=== PATIENT | female | born 1980 | race American Indian/Alaskan Native ===

== ENCOUNTER 2020-03-22 00:18 | Emergency (ER) | payer SELFPAY | END 2020-03-22 07:00 | disposition left against medical advice (07) | LOC: ED 00:18 | DX: H92.02 Otalgia, left ear (principal); Z53.21 Procedure and treatment not carried out due to patient leaving prior to being seen by health care provider ==

== ENCOUNTER 2020-09-10 01:03 | Emergency (ER) | payer SELFPAY ==
[2020-09-10 01:32] VITALS: BP 151/99
[2020-09-10 02:06] LABS: Basophils # (Auto) 0.1 K/mm3 (0.0-0.1); Basophils % (Auto) 0.3 % (0.0-1.8); Eosinophils # (Auto) 0.1 K/mm3 (0.0-0.4); Eosinophils % (Auto) 0.4 % (0.0-4.3); Hematocrit 33.7 % (30.3-42.9); Hemoglobin 11.5 gm/dl (10.1-14.3); Lymphocytes # (Auto) 3.3 K/mm3 (1.2-5.4); Lymphocytes % (Auto) 19.5 % (13.4-35.0); Mean Corpuscular HGB Conc 34 % (30-34); Mean Corpuscular Volume 89 fl (79-97); Monocytes # (Auto) 1.4 K/mm3 (0.0-0.8); Monocytes % (Auto) 8.4 % (0.0-7.3); Platelet Count 380 K/mm3 (140-440); Red Blood Count 3.78 M/mm3 (3.65-5.03)
[2020-09-10 02:12] LABS: Bacteria,Urine 1+ /HPF (Negative); Bilirubin,Urine NEG (Negative); Blood,Urine MOD (Negative); Color,Urine Straw (Yellow); Mucus,Urine FEW /HPF; Protein,Urine <15 mg/dL mg/dL (Negative); Urobilinogen,Urine < 2.0 mg/dL (<2.0)
[2020-09-10] MEDS ORDERED: ACETAMINOPHEN 325 MG TAB PO ONE (02:24)
--- NOTE | 2020-09-10 02:27 | Emergency Department Report ---
ED Female HPI - General Chief complaint: Vaginal Bleeding Stated complaint: HEAVY VAGINAL BLEEDING/BURNING SENSATION Time Seen by Provider: 09/10/20 01:54 Source: patient Mode of arrival: Ambulatory Limitations: No Limitations - History of Present Illness Initial comments: Patient is a 39-year-old female presents emergency with complaints of lower ab dominal cramping that began a week ago. She states that on September 01 she had an episode of vaginal bleeding and then it resolved. She states again she had vaginal bleeding on September 05 but it self resolved again. She states today she has noticed a small amount of vaginal bleeding has changed approximately 2 menstrual pads. She states that she has not had a menstrual cycle since July 10, 2020. She has not taken a test. She states that she last saw an [facility] 7 months ago. She denies ever having abnormal Pap smear. She denies any fever, nausea, vomiting, diarrhea, dysuria, abnormal vaginal discharge, itching or burning. No past medical history. No allergies medications. - Related Data Home Medications Medication Instructions Recorded Confirmed Last Taken Vit-Fe Fumar-FA [ 1 tab PO QDAY 04/08/15 04/08/15 Unknown Vitamin] Previous Rx's Medication Instructions Recorded Last Taken Type Acetaminophen with Codeine 1 each PO Q6HR PRN #15 tablet 04/09/15 Unknown Rx [Acetaminophen-Codeine #2 TAB] Docusate Sodium [Colace CAP] 100 mg PO BID PRN #60 capsule 04/09/15 Unknown Rx Allergies Allergy/AdvReac Type Severity Reaction Status Date / Time No Known Allergies Allergy Unverified 04/08/15 17:45 ED Review of Systems ROS: Stated complaint: HEAVY VAGINAL BLEEDING/BURNING SENSATION Other details as noted in HPI Comment: All other systems reviewed and negative ED Past Medical Hx - Past Medical History Previous Medical History?: No - Surgical History Past Surgical History?: Yes Additional Surgical History: RIGHT OVARIAN CYST REMOVED - Social History Smoking Status: Current Every Day Smoker Substance Use Type: None - Medications Home Medications: Home Medications Medication Instructions Recorded Confirmed Last Taken Type Vit-Fe Fumar-FA [ 1 tab PO QDAY 04/08/15 04/08/15 Unknown History Vitamin] Acetaminophen with Codeine 1 each PO Q6HR PRN #15 tablet 04/09/15 Unknown Rx [Acetaminophen-Codeine #2 TAB] Docusate Sodium [Colace CAP] 100 mg PO BID PRN #60 capsule 04/09/15 Unknown Rx ED Physical Exam - General Limitations: No Limitations General appearance: alert, in no apparent distress - Head Head exam: Present: atraumatic, normocephalic - Eye Eye exam: Present: normal appearance - ENT ENT exam: Present: mucous membranes moist - Respiratory Respiratory exam: Present: normal lung sounds bilaterally. Absent: respiratory distress, wheezes, rales, rhonchi, stridor, chest wall tenderness, accessory muscle use, decreased breath sounds, prolonged expiratory - Cardiovascular Cardiovascular Exam: Present: regular rate, normal rhythm, normal heart sounds. Absent: systolic murmur, diastolic murmur, rubs, gallop - GI/Abdominal GI/Abdominal exam: Present: soft, normal bowel sounds. Absent: distended, tenderness, guarding, rebound, rigid - Neurological Exam Neurological exam: Present: alert, oriented X3 - Psychiatric Psychiatric exam: Present: normal affect, normal mood - Skin Skin exam: Present: warm, dry, intact ED Course Vital Signs 09/10/20 01:27 Temperature 98.7 F Pulse Rate 82 Respiratory 18 Rate Blood Pressure 151/99 O2 Sat by Pulse 99 Oximetry ED Medical Decision Making - Lab Data Result diagrams: 09/10/20 01:35 09/10/20 02:22 Lab Results 09/10/20 09/10/20 09/10/20 Range/Units 01:35 01:35 01:35 WBC 16.7 H (4.5-11.0) K/mm3 RBC 3.78 (3.65-5.03) M/mm3 Hgb 11.5 (10.1-14.3) gm/dl Hct 33.7 (30.3-42.9) % MCV 89 (79-97) fl MCH 30 (28-32) pg MCHC 34 (30-34) % RDW 16.0 H (13.2-15.2) % Plt Count 380 (140-440) K/mm3 Lymph % (Auto) 19.5 (13.4-35.0) % Parmer % (Auto) 8.4 H (0.0-7.3) % Eos % (Auto) 0.4 (0.0-4.3) % Baso % (Auto) 0.3 (0.0-1.8) % Lymph # (Auto) 3.3 (1.2-5.4) K/mm3 Parmer # (Auto) 1.4 H (0.0-0.8) K/mm3 Eos # (Auto) 0.1 (0.0-0.4) K/mm3 Baso # (Auto) 0.1 (0.0-0.1) K/mm3 Seg Neutrophils % 71.4 H (40.0-70.0) % Seg Neutrophils # 11.9 H (1.8-7.7) K/mm3 Sodium (137-145) mmol/L Potassium (3.6-5.0) mmol/L Chloride (98-107) mmol/L Carbon Dioxide (22-30) mmol/L Anion Gap mmol/L BUN (7-17) mg/dL Creatinine (0.6-1.2) mg/dL Estimated GFR ml/min BUN/Creatinine Ratio % Glucose (65-100) mg/dL Calcium (8.4-10.2) mg/dL Total Bilirubin (0.1-1.2) mg/dL AST (5-40) units/L ALT (7-56) units/L Alkaline Phosphatase (35-129) units/L Total Protein (6.3-8.2) g/dL Albumin (3.9-5) g/dL Albumin/Globulin Ratio % HCG, Quant 1349 H (0-4) mIU/mL Urine Color Straw (Yellow) Urine Turbidity Clear (Clear) Urine pH 6.0 (5.0-7.0) Ur Specific [place] 1.012 (1.003-1.030) Urine Protein <15 mg/dl (Negative) mg/dL Urine Glucose (UA) Neg (Negative) mg/dL Urine Ketones Neg (Negative) mg/dL Urine Blood Mod (Negative) Urine Nitrite Neg (Negative) Urine Bilirubin Neg (Negative) Urine Urobilinogen < 2.0 (<2.0) mg/dL Ur Leukocyte Esterase Tr (Negative) Urine WBC (Auto) 5.0 (0.0-6.0) /HPF Urine RBC (Auto) 2.0 (0.0-6.0) /HPF U Epithel Cells (Auto) 3.0 (0-13.0) /HPF Urine Bacteria (Auto) 1+ (Negative) /HPF Urine Mucus Few /HPF Blood Type 09/10/20 09/10/20 Range/Units 01:35 02:22 WBC (4.5-11.0) K/mm3 RBC (3.65-5.03) M/mm3 Hgb (10.1-14.3) gm/dl Hct (30.3-42.9) % MCV (79-97) fl MCH (28-32) pg MCHC (30-34) % RDW (13.2-15.2) % Plt Count (140-440) K/mm3 Lymph % (Auto) (13.4-35.0) % Parmer % (Auto) (0.0-7.3) % Eos % (Auto) (0.0-4.3) % Baso % (Auto) (0.0-1.8) % Lymph # (Auto) (1.2-5.4) K/mm3 Parmer # (Auto) (0.0-0.8) K/mm3 Eos # (Auto) (0.0-0.4) K/mm3 Baso # (Auto) (0.0-0.1) K/mm3 Seg Neutrophils % (40.0-70.0) % Seg Neutrophils # (1.8-7.7) K/mm3 Sodium 137 (137-145) mmol/L Potassium 4.4 (3.6-5.0) mmol/L Chloride 102.3 (98-107) mmol/L Carbon Dioxide 25 (22-30) mmol/L Anion Gap 14 mmol/L BUN 11 (7-17) mg/dL Creatinine 0.7 (0.6-1.2) mg/dL Estimated GFR > 60 ml/min BUN/Creatinine Ratio 16 % Glucose 105 H (65-100) mg/dL Calcium 9.8 (8.4-10.2) mg/dL Total Bilirubin 0.20 (0.1-1.2) mg/dL AST 15 (5-40) units/L ALT 14 (7-56) units/L Alkaline Phosphatase 89 (35-129) units/L Total Protein 7.3 (6.3-8.2) g/dL Albumin 4.6 (3.9-5) g/dL Albumin/Globulin Ratio 1.7 % HCG, Quant (0-4) mIU/mL Urine Color (Yellow) Urine Turbidity (Clear) Urine pH (5.0-7.0) Ur Specific [place] (1.003-1.030) Urine Protein (Negative) mg/dL Urine Glucose (UA) (Negative) mg/dL Urine Ketones (Negative) mg/dL Urine Blood (Negative) Urine Nitrite (Negative) Urine Bilirubin (Negative) Urine Urobilinogen (<2.0) mg/dL Ur Leukocyte Esterase (Negative) Urine WBC (Auto) (0.0-6.0) /HPF Urine RBC (Auto) (0.0-6.0) /HPF U Epithel Cells (Auto) (0-13.0) /HPF Urine Bacteria (Auto) (Negative) /HPF Urine Mucus /HPF Blood Type O POSITIVE - Radiology Data Radiology results: report reviewed Ordering Physician: DIPTI MARION Date of Service: 09/10/20 Procedure(s): US OB transvaginal Accession Number(s): [id number] cc: DIPTI MARION ULTRASOUND OBSTETRIC INDICATION / CLINICAL INFORMATION: hcg elevated, abd cramping, bleeding. Clinical Gestational Age (GA) in weeks, days: TECHNIQUE: Transabdominal and Transvaginal. COMPARISON: None available. FINDINGS: Uterus: Uterus measures 10.9 cm in length. Endometrial stripe measures 16 mm No gestational sac, yolk sac or pole is seen on today's study. ADNEXA: No significant abnormality. There is a 1.8 cm cyst in the left ovary. FREE FLUID: None. ADDITIONAL FINDINGS: None. IMPRESSION: 1. No gestational sac or yolk sac or pole is seen on today's study. There is a small cyst in the left ovary. Correlation with beta hCG level is recommended. Follow-up ultrasound should be obtained as is clinically warranted Signer Name: Jameson Ca MD Signed: 09/10/2020 3:35 AM Workstation Name: [id number] Transcribed By: SS Dictated By: Jameson Ca MD Electronically Authenticated By: Jameson Ca MD Signed Date/Time: 09/10/20334 DD/ 1 TD/TT: Print - Medical Decision Making Patient is a 39-year-old female presents emergency with complaints of lower abdominal cramping that began a week ago. She states that on September 01 she had an episode of vaginal bleeding and then it resolved. She states again she had vaginal bleeding on September 05 but it self resolved again. She states today she has noticed a small amount of vaginal bleeding has changed approximately 2 menstrual pads. She states that she has not had a menstrual cycle since July 10, 2020. She has not taken a test. She states that she last saw an [facility] 7 months ago. She denies ever having abnormal Pap smear. She denies any fever, nausea, vomiting, diarrhea, dysuria, abnormal vaginal discharge, itching or burning. No past medical history. No allergies medications. Vitals are stable. No abdominal tenderness on exam, no guarding, neuro, rigidity, nor bowel sounds, no peritoneal signs. Labs are stable. hCG quant is 1349. UA is within normal meds. Patient is Rh+. OB ultrasound: 1. No gestational sac or yolk sac or pole is seen on today's study. There is a small cyst in the left ovary. Correlation with beta hCG level is recommended. Follow-up ultrasound should be obtained as is clinically warranted. Examination could represent complete spontaneous versus possible early . Discussed all results with patient and discussed the importance of follow-up and the need for repeat hCG quant in 2 days. Advised patient Please increase your water intake. May take Tylenol as needed for cramping. Follow-up with [facility]. You need to have a repeat hCG quant in 2 days. Today 09/10/2020 your hCG quant is 1349. Return to emergency room for any new or worsening symptoms. Critical care attestation.: If time is entered above; I have spent that time in minutes in the direct care of this critically ill patient, excluding procedure time. ED Disposition Clinical Impression: Elevated serum hCG, Vaginal bleeding, Abdominal cramping Disposition: DC- TO HOME OR SELFCARE Is pt being admited?: No Does the pt Need Aspirin: No Condition: Stable Additional Instructions: Please increase your water intake. May take Tylenol as needed for cramping. Follow-up with [facility]. You need to have a repeat hCG quant in 2 days. Today 09/10/2020 your hCG quant is 1349. Return to emergency room for any new or w orsening symptoms. Referrals: [facility] [Provider Group] - 2-3 Days PRIMARY CARE, [Primary Care Provider] - 2-3 Days Time of Disposition: 03:42 Print Language: ISRAELI
[2020-09-10 03:05] LABS: Alanine Aminotransferase 14 units/L (7-56); Albumin 4.6 g/dL (3.9-5); Blood Urea Nitrogen 11 mg/dL (7-17); Calcium 9.8 mg/dL (8.4-10.2); Hemolysis Index 3
[2020-09-10 03:07] LABS: BUN/Creatinine Ratio 16
--- NOTE | 2020-09-10 03:40 | Ultrasound Report ---
ULTRASOUND OBSTETRIC INDICATION / CLINICAL INFORMATION: hcg elevated, abd cramping, bleeding. Clinical Gestational Age (GA) in weeks, days: TECHNIQUE: Transabdominal and Transvaginal. COMPARISON: None available. FINDINGS: Uterus: Uterus measures 10.9 cm in length. Endometrial stripe measures 16 mm No gestational sac, yolk sac or pole is seen on today's study. ADNEXA: No significant abnormality. There is a 1.8 cm cyst in the left ovary. FREE FLUID: None. ADDITIONAL FINDINGS: None. IMPRESSION: 1. No gestational sac or yolk sac or pole is seen on today's study. There is a small cyst in th e left ovary. Correlation with beta hCG level is recommended. Follow-up ultrasound should be obtained as is clinica lly warranted Signer Name: Jameson Ca MD Signed: 09/10/2020 3:35 AM Workstation Name: [id number]
== END 2020-09-10 03:57 | disposition home or self-care (01) ==
LOC: ED 01:03
DX: E34.9 Endocrine disorder, unspecified (principal); R10.30 Lower abdominal pain, unspecified; N93.9 Abnormal uterine and vaginal bleeding, unspecified; F17.200 Nicotine dependence, unspecified, uncomplicated; Z79.899 Other long term (current) drug therapy; Z98.890 Other specified postprocedural states
CPT/HCPCS: 36415; 76801; 76817; 80053; 81001; 84702; 85025; 86900; 86901